=== PATIENT | female | born 1955 | race Caucasian/White ===

== ENCOUNTER → 2016-10-06 | Outpatient (CLI) | payer BC | LOC: BMCIMAGING 13:36 | PROVIDERS: ATTEND Internal Medicine | DX: Z12.31 Encounter for screening mammogram for malignant neoplasm of breast (principal) | CPT/HCPCS: G0202 ==

== ENCOUNTER 2016-11-28 16:19 | Inpatient (IN) | payer BC ==
[2016-11-28] MEDS ORDERED: ONDANSETRON 4 MG/2 ML VIAL IVP ONE (17:12)
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
[2016-11-28] MEDS ORDERED: TDAP ADULT 0.5 ML INJ (BOOSTRIX) IM ONE (17:25)
[2016-11-28] MEDS ORDERED: HYDROmorphONE/DILAUDID 1 MG/ML SYR IVP ONE (17:56)
[2016-11-28 18:05] LABS: % IMMATURE GRANULYOCYTES 0.4 % (0.0-1.1); ABSOLUTE IMMATURE GRANULOCYTES 0.03 10^3/uL (0.00-0.10); ADD DIFF? NO; ADD MORPH? NO; ADD SCAN? NO; ATYPICAL LYMPHOCYTE FLAG 0 (0-99); FRAGMENT RBC FLAG 0 (0-99); HEMATOCRIT 40.3 % (38.0-47.0); HEMOGLOBIN 13.7 g/dL (12.6-16.3); LEFT SHIFT FLG 0 (0-99); LIPEMIA HEMOLYSIS FLAG 90 (0-99); MEAN CELL HEMOGLOBIN 33.4 pg (27.9-34.1); MEAN CELL VOLUME 98.3 fL (81.5-99.8); MEAN PLATELET VOLUME 12.1 fL (8.7-11.7); PLATELET CLUMPS FLAG 0 (0-99); PLATELET COUNT 204 10^3/uL (150-400); RED CELL DISTRIBUTION WIDTH 13.5 % (11.5-15.2)
[2016-11-28 18:12] LABS: ANION GAP 14 mEq/L (8-16); CALCIUM 10.3 mg/dL (8.5-10.4); CARBON DIOXIDE 21 mEq/l (22-31); CHLORIDE 105 mEq/L (97-110); CREATININE 0.7 mg/dL (0.6-1.0); GLOMERULAR FILTRATION RATE > 60; GLUCOSE 101 mg/dL (70-100); POTASSIUM 3.7 mEq/L (3.5-5.2); SODIUM 140 mEq/L (134-144)
[2016-11-28] MEDS ORDERED: ONDANSETRON 4 MG/2 ML VIAL IVP PRN (18:20)
[2016-11-28] MEDS ORDERED: ALBUTEROL 200 PUFFS/18 GM MDI IH PRN (18:30)
[2016-11-28] MEDS: LR 1,000 ML IV SCH (18:51)
[2016-11-28] MEDS: HYDROmorphONE/DILAUDID 1 MG/ML SYR IVP PRN (19:37)
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
[2016-11-28] MEDS: HYDROmorphONE/DILAUDID 2 MG TAB PO PRN (22:21)
[2016-11-28] MEDS: ACETAMINOPHEN 500 MG TAB PO SCH (22:22)
[2016-11-28] MEDS: DIAZEPAM 5 MG TAB PO PRN (22:22)
[2016-11-28] MEDS: ESCITALOPRAM OXALATE 10 MG TAB PO SCH (22:36)
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
[2016-11-28] MEDS ORDERED: BACITRACIN OINTMENT 1 PACKET TP ONE (23:46)
[2016-11-29] MEDS: HYDROmorphONE/DILAUDID 2 MG TAB PO PRN ×2 (00:07→04:26)
[2016-11-29] MEDS: KETOROLAC 30 MG/1 ML SDV IVP PRN ×2 (02:31→18:52)
[2016-11-29] MEDS: LR 1,000 ML IV SCH ×2 (04:25→11:20)
[2016-11-29] MEDS: ACETAMINOPHEN 500 MG TAB PO SCH ×3 (04:25→20:47)
[2016-11-29 05:11] LABS: % IMMATURE GRANULYOCYTES 0.3 % (0.0-1.1); ABSOLUTE IMMATURE GRANULOCYTES 0.02 10^3/uL (0.00-0.10); ADD DIFF? NO; ADD MORPH? NO; ADD SCAN? NO; ATYPICAL LYMPHOCYTE FLAG 0 (0-99); FRAGMENT RBC FLAG 0 (0-99); HEMATOCRIT 35.5 % (38.0-47.0); LEFT SHIFT FLG 0 (0-99); LIPEMIA HEMOLYSIS FLAG 90 (0-99); MEAN CELL HEMOGLOBIN CONCENTR. 33.8 g/dL (32.4-36.7); MEAN CELL VOLUME 97.5 fL (81.5-99.8); MEAN PLATELET VOLUME 11.1 fL (8.7-11.7); PLATELET CLUMPS FLAG 0 (0-99); PLATELET COUNT 186 10^3/uL (150-400); RED BLOOD CELL COUNT 3.64 10^6/uL (4.18-5.33); RED CELL DISTRIBUTION WIDTH 13.6 % (11.5-15.2)
[2016-11-29 05:31] LABS: ANION GAP 7 mEq/L (8-16); CALCIUM 9.2 mg/dL (8.5-10.4); CARBON DIOXIDE 24 mEq/l (22-31); CHLORIDE 108 mEq/L (97-110); CREATININE 0.7 mg/dL (0.6-1.0); GLOMERULAR FILTRATION RATE > 60; GLUCOSE 106 mg/dL (70-100); SODIUM 139 mEq/L (134-144)
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
[2016-11-29] MEDS: DIAZEPAM 5 MG TAB PO PRN (07:39)
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
--- NOTE | 2016-11-29 09:57 | TRAUMAPN ---
- Problem/Surgery Performed (1) C1-C2 subluxation Assessment/Plan: 11/29/2016 Attempt made to reduce subluxation at bedside by Dr. Brennan. F/u films pending Qualifiers: Encounter type: subsequent encounter Qualified Code(s): S13.120D - Subluxation of C1/C2 cervical vertebrae, subsequent encounter (2) Fracture of right orbital floor Assessment/Plan: 11/29/[address] Rodríguez's consult Qualifiers: Encounter type: subsequent encounter Fracture type: closed Fracture healing: F Qualified Code(s): S02.31XA - Fracture of orbital floor, right side , initial encounter for closed fracture (3) Open fracture of second metacarpal bone Assessment/Plan: 11/29/2016 stabilization and washout planned for today for open fracture. Qualifiers: Encounter type: subsequent encounter Metacarpal location: shaft Fracture morphology: F Fracture alignment: displaced Laterality: left Fracture healing: F Qualified Code(s): S62.321B - Displaced fracture of shaft of second metacarpal bone, left hand, initial encounter for open fracture Assessment/Plan: 11/29/2016 Tertiary exam without new findings F/u c-spine films today Left hand fracture stabilization and washout today. Plastics consult re: inferior orbital wall fracture still pending Subjective: 11/29/2016 Passing flatus No new complaints still c/o mild right shoulder pain ( xrays negative) Objective: Vital Signs Temp Pulse Resp BP Pulse Ox 36.5 C 59 L 16 109/75 98 11/29/16 07:33 11/29/16 07:33 11/29/16 07:33 11/29/16 07:33 11/29/16 07:33 Laboratory Results 11/29/16 04:58 11/29/16 04:58 11/28/16 11/29/16 11/30/16 05:59 05:59 05:59 Intake Total 715 Balance 715 - C-Spine Clearance Cervical Spine Cleared: No Physical Exam - Physical Exam General Appearance: WD/WN, alert, no apparent distress Respiratory: chest non-tender, lungs clear, normal breath sounds Cardiac/Chest: regular rate, rhythm Abdomen: normal bowel sounds, non-tender, soft Pelvic Exam: deferred Rectal: deferred Back: Normal inspection Skin: normal color, warm/dry Extremities: normal range of motion, other (splint on left wrist) Neuro/Psych: no motor/sensory deficits, alert, normal mood/affect, oriented x 3 Time Spent w/Patient (minutes): 25
[2016-11-29] MEDS: HYDROmorphONE/DILAUDID 1 MG/ML SYR IVP PRN (10:56)
[2016-11-29] MEDS ORDERED: LR 1,000 ML IV ONE (11:18)
[2016-11-29] MEDS ORDERED: BUPIVACAINE 0.25% 30 ML SDV ONE (11:33)
[2016-11-29] MEDS ORDERED: MIDAZOLAM 2 MG/2 ML VIAL IVP ONE (12:06)
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
--- NOTE | 2016-11-29 12:31 | SOAPPROG ---
SHEREEN Progress Note Assessment/Plan: Assessment: Open Fx L 2nd Meatacarpal Plan:To OR for debridement and limited internal fixation 11/29/16 12:29 Open Fx l Se Subjective: No complaints. neck feels better after reduction of subluxation C!-C2 Objective: Vital Signs Temp Pulse Resp BP Pulse Ox 36.6 C 62 14 116/87 H 99 11/29/16 11:14 11/29/16 12:12 11/29/16 12:12 11/29/16 12:12 11/29/16 12:12 Laboratory Results 11/29/16 04:58 11/29/16 04:58 11/28/16 11/29/16 11/30/16 05:59 05:59 05:59 Intake Total 715 Balance 715 CSMT ok moves everything ok ICD10 Worksheet Patient Problems: Problems Problem Status Onset C1-C2 subluxation Acute Fracture of right orbital floor Acute Fracture of thumb, left, closed Acute Open fracture of second metacarpal bone Acute
[2016-11-29] MEDS ORDERED: PROPOFOL 200 MG/20 ML VIAL ONE (12:45)
[2016-11-29] MEDS ORDERED: POLYMYXIN B SULFATE 500,000 UNIT/10 ML SYR IRR ONE (12:58)
[2016-11-29] MEDS ORDERED: BACITRACIN 50,000 UNITS/10 ML SYR IRR ONE (12:58)
[2016-11-29] MEDS ORDERED: LR 500 ML IV PRN (13:37)
[2016-11-29] MEDS ORDERED: NALOXONE HCL 0.4 MG/ML INJ IVP PRN (13:37)
[2016-11-29] MEDS ORDERED: fentaNYL 100 MCG/2 ML INJ IVP PRN (13:37)
--- NOTE | 2016-11-29 14:46 | POSTANESTH ---
Post Anesthetic Evaluation Cardiovascular Status: Normal, Stable, Similar to Pre-Op Cond Respiratory Status: Normal, Stable, Similar to Pre-op Cond. Level of Consciousness/Mental Status: Can Participate in Eval Pain Control: Adequate, Prn Tx Ordered Nausea/Vomiting Control: Adequate, Prn Tx Ordered Complications Possibly Related to Anesthesia: None Noted (Patient pain very well controlled by peripheral nerve block used as primary anesthetic.)
--- NOTE | 2016-11-29 16:55 | SOAPPROG ---
SOAP Progress Note Assessment/Plan: Assessment: right orbital floor fracture, minimal displacement Periocular soft tissue trauma Plan: Observation of orbital floor fracture suture removal 6 days for facial laceration ice/elevation to areas of facial trauma 11/29/16 16:51 Subjective: no gross visual changes, pain from recent surgery Objective: Vital Signs Temp Pulse Resp BP Pulse Ox 36.8 C 65 16 115/68 96 11/29/16 16:00 11/29/16 16:00 11/29/16 16:00 11/29/16 16:00 11/29/16 16:00 Laboratory Results 11/29/16 04:58 11/29/16 04:58 11/28/16 11/29/16 11/30/16 05:59 05:59 05:59 Intake Total 715 500 Output Total 5 Balance 715 495 right facial ecchymosis sutures above right brow EOMI, no clinical entrapment mild paresthesias right cheek Normal occlusion No palpable stepoffs - Time Spent With Patient Time Spent With Patient: 20min ICD10 Worksheet Patient Problems: Problems Problem Status Onset C1-C2 subluxation Acute Fracture of right orbital floor Acute Fracture of thumb, left, closed Acute Open fracture of second metacarpal bone Acute
[2016-11-29] MEDS: ESCITALOPRAM OXALATE 10 MG TAB PO SCH (20:47)
--- NOTE | 2016-11-29 22:23 | GOP ---
[f rep st] OPERATIVE REPORT DATE OF OPERATION: 11/29/2016 SURGEON: Regan Coley MD ANESTHESIA: Supraclavicular nerve block. PREOPERATIVE DIAGNOSIS: 1. Open fracture, left 2nd metacarpal. 2. Closed dorsal avulsion fracture, base of left thumb, with associated radial collateral ligament and dorsal capsular injury. POSTOPERATIVE DIAGNOSIS: 1. Open fracture, left 2nd metacarpal. 2. Closed dorsal avulsion fracture, base of left thumb, with associated radial collateral ligament and dorsal capsular injury. PROCEDURE PERFORMED: 1. Open reduction, internal fixation, left 2nd finger metacarpal fracture. 2. Debridement of open fracture. 3. Closed treatment of dorsal avulsion fracture, proximal phalanx left thumb, with associated radia l collateral ligament and dorsal capsular injury. FINDINGS: DESCRIPTION OF PROCEDURE: The patient was taken the operating room after having been administered a supraclavicular nerve block by Anesthesia. The left upper extremity was prepped and draped in norm al sterile fashion. The area of the open wound was debrided with an ellipse. The skin and subcutan eous tissues were removed from around the open area. The incision was then continued distally over the fracture. A thorough lavage was performed with copious amounts of normal saline with neomycin-b acitracin solution. The fracture was exposed. Curettage of the bone ends was performed. Approxima tely 3000 cc of fluid was passed through the fracture. We subsequently reapproximated the fracture. It was then secured with a 1.5 mm plate with 1.2 mm screws. Each screw hole was drilled with a 1. 1 drill and the screws were then measured and placed. Three screws were distal to the fracture and 3 screws proximal to the fracture. Anatomic reduction was obtained. A thorough lavage was again pe rformed with normal saline solution. We subsequently closed with an interrupted 5-0 nylon suture. The thumb was stressed. We did not feel that the dorsal capsular or radial collateral ligament was grossly unstable. We felt that the dorsal avulsion fracture was stable. This was just splinted. S plints were applied to the thumb with a thumb spica support and a ribbon splint was placed dorsally over the 1st metacarpal fracture. The patient tolerated the procedure well, was transferred back to recovery in stable condition. There were no operative complications. COMPLICATIONS: None. /[id number]/MODL
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
[2016-11-30 03:15] VITALS: O2SAT 94
[2016-11-30] MEDS: ACETAMINOPHEN 500 MG TAB PO SCH ×2 (05:48→13:38)
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
--- NOTE | 2016-11-30 07:29 | SOAPPROG ---
SOAP Progress Note Assessment/Plan: Assessment/Plan: Left 2nd metacarpal fx, open, left thumb fracture s/p ORIF of 2nd MC fx, closed reduction of left thumb, POD#1 -Cont PT/OT -Cont current PO pain regimen -Cont ice and elevation for swelling and pain relief -Pt will be NWB of benito ROJAS for light use of unaffected digits (3-5) -Pt will remain in her splint/brace until f/u in 10 days post op -OK to d/c from ortho standpoint 11/30/16 10:51 Subjective: Pt states pain well controlled. She is tolerating her diet and medications well. No significant pain at this time. We have discussed activity restrictions, as well as post op care until f/u. We have also discussed a recouperative timeline regarding the left hand/thumb. She has no additional concerns or complaints at this time. Objective: Vital Signs Temp Pulse Resp BP Pulse Ox 36.3 C 82 16 138/86 H 94 11/30/16 03:12 11/30/16 03:12 11/30/16 03:12 11/30/16 03:12 11/30/16 03:12 Laboratory Results 11/29/16 04:58 11/29/16 04:58 11/29/16 11/30/16 12/01/16 05:59 05:59 05:59 Intake Total 715 500 Output Total 5 Balance 715 495 Pt seen at bedside. A&Ox3, appropriate mood and affect, pleasant and cooperative with exam. VSS. Exam of the left hand reveals intact dressings, no surrounding erythema, calor, discharge or induration. Forearm compartments are supple. Thumb immobilized in volar cock up wrist splint with thumb spica. Pt moves digits 3-5 well. Intact to light touch sensation. DNVI BUE. ICD10 Worksheet Patient Problems: Problems Problem Status Onset C1-C2 subluxation Acute Fracture of right orbital floor Acute Fracture of thumb, left, closed Acute Open fracture of second metacarpal bone Acute
[2016-11-30 08:39] VITALS: RESP 14
[2016-11-30] MEDS: KETOROLAC 30 MG/1 ML SDV IVP PRN (09:19)
[2016-11-30] MEDS: diphenhydrAMINE 25 MG CAP PO PRN ×2 (10:15→13:38)
--- NOTE | 2016-11-30 11:53 | TRAUMAPN ---
- Problem/Surgery Performed (1) C1-C2 subluxation Assessment/Plan: 11/29/2016 Attempt made to reduce subluxation at bedside by Dr. Brennan. F/u films pending 11/30 In Cervical collar. Instructions given by Neurosurgery. To use [place] collar to shower. F/u in 2 weeks Qualifiers: Encounter type: subsequent encounter Qualified Code(s): S13.120D - Subluxation of C1/C2 cervical vertebrae, subsequent encounter (2) Fracture of right orbital floor Assessment/Plan: 11/29/[address] Rodríguez's consult 11/30 Dr. Rodríguez's consult and plan appreciated. Diplopia has resolved. Qualifiers: Encounter type: subsequent encounter Fracture type: closed Fracture healing: F Qualified Code(s): S02.31XA - Fracture of orbital floor, right side , initial encounter for closed fracture (3) Open fracture of second metacarpal bone Assessment/Plan: 11/29/2016 stabilization and washout planned for today for open fracture. 11/30 post op day # 1. Still has one more dose of ancef pending. Qualifiers: Encounter type: subsequent encounter Metacarpal location: shaft Fracture morphology: F Fracture alignment: displaced Laterality: left Fracture healing: F Qualified Code(s): S62.321B - Displaced fracture of shaft of second metacarpal bone, left hand, initial encounter for open fracture Assessment/Plan: 11/29/2016 Tertiary exam without new findings F/u c-spine films today Left hand fracture stabilization and washout today. Plastics consult re: inferior orbital wall fracture still pending 11/30 will plan discharge for this afternoon Subjective: No complaints Objective: Vital Signs Temp Pulse Resp BP Pulse Ox 36.9 C 79 14 122/84 H 94 11/30/16 08:10 11/30/16 08:10 11/30/16 08:10 11/30/16 08:10 11/30/16 08:10 Laboratory Results 11/29/16 04:58 11/29/16 04:58 11/29/16 11/30/16 12/01/16 05:59 05:59 05:59 Intake Total 715 500 Output Total 5 Balance 715 495 - C-Spine Clearance Cervical Spine Cleared: No Physical Exam - Physical Exam General Appearance: WD/WN, alert, no apparent distress EENT: other (no diploplia noted) Neck: other (In a hard collar, being taught how to change to [place] collar for showering. Still c/o of cheek/tooth fullness) Respiratory: chest non-tender, lungs clear, normal breath sounds Cardiac/Chest: regular rate, rhythm Abdomen: normal bowel sounds, non-tender, soft Pelvic Exam: deferred Rectal: deferred Back: Normal inspection Skin: normal color, warm/dry Extremities: normal range of motion, non-tender, normal inspection Neuro/Psych: no motor/sensory deficits, alert, normal mood/affect, oriented x 3 Time Spent w/Patient (minutes): 25
[2016-11-30 12:23] VITALS: BP 109/65; PULSE 66; TEMP 96.8
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
== END 2016-11-30 15:22 | disposition home or self-care (01) | DRG 519 ==
LOC: F3N 21:27
PROVIDERS: ADMIT Surgery; ATTEND Surgery
PROC: 0PS3XZZ Reposition Cervical Vertebra, External Approach (ICD-10-PCS; principal; 2016-11-28)
PROC: 0HQ1XZZ Repair Face Skin, External Approach (ICD-10-PCS; 2016-11-28)
PROC: 0PSQ04Z Reposition Left Metacarpal with Internal Fixation Device, Open Approach (ICD-10-PCS; 2016-11-29 17:00)
DX: S62.301B Unspecified fracture of second metacarpal bone, left hand, initial encounter for open fracture (principal); S13.121A Dislocation of C1/C2 cervical vertebrae, initial encounter; S13.150A Subluxation of C4/C5 cervical vertebrae, initial encounter; S02.81XA Fracture of other specified skull and facial bones, right side, initial encounter for closed fracture; S01.81XA Laceration without foreign body of other part of head, initial encounter; J45.909 Unspecified asthma, uncomplicated; V18.0XXA Pedal cycle driver injured in noncollision transport accident in nontraffic accident, initial encounter; S01.111A Laceration without foreign body of right eyelid and periocular area, initial encounter; S62.515A Nondisplaced fracture of proximal phalanx of left thumb, initial encounter for closed fracture; Y93.55 Activity, bike riding
CPT/HCPCS: 96374; 97161-GP; 97166-GO; 97535-GO; C1713; J0690; J1170; J1885; J2250; J2405; J2704; L3807; L3925

== ENCOUNTER 2016-12-04 13:02 | Emergency (ER) | payer OTHER, BC ==
[2016-12-04 13:15] VITALS: RESP 18
--- NOTE | 2016-12-04 13:29 | CPEKG ---
Heart Rate: 57 RR Interval: 1053 P-R Interval: 144 QRSD Interval: 102 QT Interval: 432 QTC Interval: 421 P [place]: 61 QRS [place]: 7 T Wave [place]: 37 EKG Severity - NORMAL ECG - EKG Impression: SINUS RHYTHM Electronically Signed By: Ga Adler 04-Dec-2016 19:01:06
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
[2016-12-04] MEDS ORDERED: ONDANSETRON 4 MG/2 ML VIAL IVP ONE (13:58)
[2016-12-04] MEDS ORDERED: NS 1,000 ML IV ONE (13:58)
[2016-12-04] MEDS ORDERED: IOPAMIDOL (ISOVUE-300) 100 ML BTL ONE (14:11)
[2016-12-04 15:01] LABS: % IMMATURE GRANULYOCYTES 0.5 % (0.0-1.1); ABSOLUTE IMMATURE GRANULOCYTES 0.03 10^3/uL (0.00-0.10); ADD DIFF? NO; ADD MORPH? NO; ADD SCAN? NO; ATYPICAL LYMPHOCYTE FLAG 0 (0-99); FRAGMENT RBC FLAG 0 (0-99); HEMATOCRIT 40.6 % (38.0-47.0); HEMOGLOBIN 13.9 g/dL (12.6-16.3); LEFT SHIFT FLG 0 (0-99); LIPEMIA HEMOLYSIS FLAG 90 (0-99); MEAN CELL HEMOGLOBIN 33.3 pg (27.9-34.1); MEAN CELL HEMOGLOBIN CONCENTR. 34.2 g/dL (32.4-36.7); MEAN CELL VOLUME 97.4 fL (81.5-99.8); MEAN PLATELET VOLUME 11.5 fL (8.7-11.7); PLATELET CLUMPS FLAG 0 (0-99); PLATELET COUNT 211 10^3/uL (150-400); RED BLOOD CELL COUNT 4.17 10^6/uL (4.18-5.33); RED CELL DISTRIBUTION WIDTH 13.2 % (11.5-15.2)
[2016-12-04 15:42] LABS: ANION GAP 12 mEq/L (8-16); CALCIUM 10.4 mg/dL (8.5-10.4); CARBON DIOXIDE 26 mEq/l (22-31); CHLORIDE 101 mEq/L (97-110); CREATININE 0.9 mg/dL (0.6-1.0); GLOMERULAR FILTRATION RATE > 60; GLUCOSE 84 mg/dL (70-100); POTASSIUM 4.2 mEq/L (3.5-5.2); SODIUM 139 mEq/L (134-144)
[2016-12-04 16:44] VITALS: BP 131/84; PULSE 60; TEMP 98.1; O2SAT 93
== END 2016-12-04 16:43 | disposition home or self-care (01) ==
LOC: EDUNIT#
DX: S10.93XA Contusion of unspecified part of neck, initial encounter (principal); S20.219A Contusion of unspecified front wall of thorax, initial encounter; V43.62XA Car passenger injured in collision with other type car in traffic accident, initial encounter; Y92.410 Unspecified street and highway as the place of occurrence of the external cause
CPT/HCPCS: 96374; J2405; L3807; L3925; Q9967

== ENCOUNTER → 2016-12-12 | Outpatient (CLI) | payer BC | LOC: FIMAGING 11:40 | PROVIDERS: ATTEND Physician Assistant | DX: M54.2 Cervicalgia (principal) ==

== ENCOUNTER → 2017-01-12 | Outpatient (CLI) | payer BC | LOC: BMCIMAGING 13:55 | PROVIDERS: ATTEND Internal Medicine | DX: M79.641 Pain in right hand (principal) ==

== ENCOUNTER → 2017-01-22 | Outpatient (CLI) | payer BC | LOC: FIMAGING 09:36 | PROVIDERS: ATTEND Nurse Practitioner | DX: S13.120D Subluxation of C1/C2 cervical vertebrae, subsequent encounter (principal) ==

== ENCOUNTER → 2017-03-23 | Outpatient (CLI) | payer BC | LOC: FIMAGING 14:42 | PROVIDERS: ATTEND Physician Assistant | DX: S12.9XXA Fracture of neck, unspecified, initial encounter (principal); M46.92 Unspecified inflammatory spondylopathy, cervical region ==

== ENCOUNTER → 2017-05-11 | Outpatient (CLI) | payer BC | LOC: FIMAGING 10:12 | PROVIDERS: ATTEND Internal Medicine Endocrinology, Diabetes & Metabolism | DX: Z13.820 Encounter for screening for osteoporosis (principal); M85.832 Other specified disorders of bone density and structure, left forearm ==

== ENCOUNTER → 2017-10-08 | Outpatient (CLI) | payer BC | LOC: BMCIMAGING 15:34 | PROVIDERS: ATTEND Internal Medicine | DX: Z12.31 Encounter for screening mammogram for malignant neoplasm of breast (principal) ==

== ENCOUNTER 2018-03-31 10:49 | Emergency (ER) | payer BC ==
--- NOTE | 2018-03-31 13:12 | EDPHY ---
H & P Stated Complaint: graon pain Time Seen by Provider: 03/31/18 11:40 HPI/ROS: Chief complaint: Left groin pain History of present illness: This is a 62-year-old female who presents to the emergency department for evaluation of left groin pain. Patient has had pain for the last 2 weeks. It began after picking up her grandchild. She reports the pain is worse when she tries to go from sitting to standing. She denies other potential precipitating factors. She denies other associated signs or symptoms including no direct trauma, no abdominal pain, no nausea, vomiting or diarrhea, no changes in urinary habits, no abnormal vaginal discomfort or discharge, no paresthesias, weakness or paralysis in the left leg. Review of systems: A 10 point review of systems was obtained and other than described above was negative - Personal History Current Tetanus/Diphtheria Vaccine: Yes Current Tetanus Diphtheria and Acellular Pertussis (TDAP): Yes - Medical/Surgical History Hx Asthma: Yes Hx Chronic Respiratory Disease: No Hx Diabetes: No Hx Cardiac Disease: No Hx Renal Disease: No Hx Cirrhosis: No Hx Alcoholism: No Hx HIV/AIDS: No Hx Splenectomy or Spleen Trauma: No Other PMH: Ankle surgery left and right, left ankle replacement, parathyroid removal, C1, C2 dislocation, C6 fx - Social History Smoking Status: Never smoked - Physical Exam Exam: General Appearance: Alert, nontoxic. Eyes: Pupils equal and round no injection. Respiratory: Chest is non tender, lungs are clear to auscultation. Cardiac: regular rate and rhythm Gastrointestinal: Bowel sounds are normal. The abdomen is soft, nondistended, nontender. I do not appreciate hernias in the femoral regions. Musculoskeletal: There is mild tenderness in the anterior aspect of the left hip/pelvis. She has good passive range of motion in all sanchez. She has pain when she attempts to flex and abduct the hip muscle, the pain is in the same region where I palpate discomfort. The rest the left lower extremities unremarkable. Skin: No rashes or lesions. Constitutional: Initial Vital Signs Temperature (C) 36.8 C 03/31/18 10:54 Heart Rate 99 03/31/18 10:54 Respiratory Rate 16 03/31/18 10:54 Blood Pressure 141/100 H 03/31/18 10:54 O2 Sat (%) 97 03/31/18 10:54 O2 Delivery Mode Room Air Allergies/Adverse Reactions: No Known Allergies Allergy (Unverified 03/31/18 10:52) Home Medications: Medication Instructions Recorded Acetaminophen [Tylenol ES 500 mg 1,000 mg PO Q8 #90 tab 11/30/16 (*)] Ibuprofen [Motrin (*)] 200 mg PO Q4 PRN #0 tab 11/30/16 Calcium 03/31/18 Fish Oil 1,000 mg Softgel 03/31/18 Vitamin B12 03/31/18 Medical Decision Making - Diagnostics Imaging Results: Imaging Impressions Hip X-Ray 03/31/18 11:54 Impression: Negative. No acute fracture or bone lesion. Imaging: I viewed and interpreted images myself ED Course/Re-evaluation: Patient seen under the supervision of my secondary supervising physician Dr. Milton Flores. Patient presents to the emergency department with left groin pain. Physical exam does reveal tenderness to palpation and discomfort with flexion and abduction of the hip in the inguinal region. X-rays negative. The rest of her exam is unremarkable including a benign abdominal exam and the left lower extremity being neurovascularly intact. I do suspect sprain/strain. Home care is discussed. She is asked to follow up with Orthopedics for recheck and referral information is provided. Return precautions are given. The patient voiced understanding and agreement with plan. Differential Diagnosis: Included but not limited to sprain or strain, bony fracture including stress fracture, unlikely hernia Departure - Departure Disposition: Home, Routine, Self-Care Clinical Impression: Hip pain, left Condition: Good Instructions: Hip Pain (ED) Additional Instructions: Please call tomorrow and arrange a follow-up appointment with orthopedics for continued evaluation and care Use [id number] ibuprofen as directed as needed for pain You can also use topical therapy such as lidocaine patches If symptoms worsen or new symptoms develop return to the emergency room for recheck Referrals: Stefani Moore MD [Primary Care Provider] - As per Instructions Louis Moffett MD [Medical Doctor] - As per Instructions
[2018-03-31 13:19] VITALS: BP 134/84
== END 2018-03-31 13:19 | disposition home or self-care (01) ==
DX: M25.552 Pain in left hip (principal); J45.909 Unspecified asthma, uncomplicated; Z96.662 Presence of left artificial ankle joint

== ENCOUNTER → 2018-04-01 | Outpatient (CLI) | payer BC | LOC: FIMAGING 16:01 | PROVIDERS: ATTEND Orthopaedic Surgery | DX: K40.90 Unilateral inguinal hernia, without obstruction or gangrene, not specified as recurrent (principal) ==

== ENCOUNTER → 2018-10-17 | Outpatient (CLI) | payer BC, OTHER | LOC: BMCIMAGING 09:46 ==